=== PATIENT | male | born 1995 | race Caucasian/White ===

== ENCOUNTER 2019-09-13 13:15 | Emergency (ER) | payer SELFPAY ==
[~2019-09-13] VITALS: Ht 182.9 cm; Wt 80.7 kg
[2019-09-13 13:23] VITALS: BP 107/72; Ht 182.9 cm; Wt 80.7 kg
== END 2019-09-13 14:37 | disposition home or self-care (01) ==
LOC: ED 13:15
DX: S61.412A Laceration without foreign body of left hand, initial encounter (principal); X58.XXXA Exposure to other specified factors, initial encounter; Y93.89 Activity, other specified; Y92.89 Other specified places as the place of occurrence of the external cause; Y99.8 Other external cause status
CPT/HCPCS: J2001

== ENCOUNTER 2019-09-20 10:26 | Emergency (ER) | payer SELFPAY ==
[~2019-09-20] VITALS: Ht 182.9 cm; Wt 78.5 kg
[2019-09-20 10:35] VITALS: BP 120/78; Ht 182.9 cm; Wt 78.5 kg
== END 2019-09-20 11:00 | disposition home or self-care (01) ==
LOC: ED 10:26
DX: S61.412D Laceration without foreign body of left hand, subsequent encounter (principal); X58.XXXD Exposure to other specified factors, subsequent encounter